=== PATIENT | female | born 1995 | race African-American/Black ===

== ENCOUNTER 2016-07-01 22:41 | Emergency (ER) | payer OTHER ==
[2016-07-01 23:06] LABS: BASOPHIL 0 % (0-2); EOSINOPHIL 0.2 % (0-5); HCT 35.8 % (37.0-47.0); LYMPHOCYTE 38.6 % (15-48); MCH 28.4 pg (25.0-31.0); MCHC 33.5 g/dL (32.0-36.0); MCV 84.8 fL (78.0-100.0); MPV 9.3 fL (6.0-9.5); NEUTROPHIL 54.2 % (41-80); PLT 275 K/uL (150-400); RBC 4.22 M/uL (4.20-5.40); RDW 13.2 % (11.5-14.0); WBC 6.1 K/uL (4.0-10.5)
[2016-07-01 23:25] LABS: ALBUMIN 4.1 g/dL (3.5-5.0); BILIRUBIN - TOTAL 0.4 mg/dL (0.1-1.0); CREATININE 0.9 mg/dL (0.5-1.0); POTASSIUM 3.9 mmol/L (3.5-5.1); TOTAL PROTEIN 7.1 g/dL (6.4-8.3)
[2016-07-01 23:39] LABS: BILIRUBIN NEGATIVE (NEGATIVE); BLOOD TRACE-INTACT Ery/uL (NEGATIVE); CLARITY CLEAR (CLEAR); COLOR YELLOW (YELLOW); GLUCOSE (U) NORMAL (NORMAL); KETONE (U) 2+ (MODERATE) mg/dL (NEGATIVE); LEUKOCYTES TRACE Leu/uL (NEGATIVE); NITRITE POSITIVE (NEGATIVE); PROTEIN TRACE (LOW) mg/dL (NEGATIVE); SPECIFIC GRAVITY >=1.030 (1.001-1.030)
[2016-07-01 23:45] LABS: BACTERIA 4+; CALCIUM OXALATE CRYSTALS MODERATE; MUCOUS MODERATE
== END 2016-07-02 01:15 | disposition home or self-care (01) ==
LOC: FER 22:41
PROVIDERS: Emergency Medicine Emergency Medical Services
DX: R07.9 Chest pain, unspecified (principal); N39.0 Urinary tract infection, site not specified; I49.9 Cardiac arrhythmia, unspecified; F17.210 Nicotine dependence, cigarettes, uncomplicated
CPT/HCPCS: 36415; 71020; 80053; 81001; 84484; 85025; 87076; 87088; 87186; 93005; J1885

== ENCOUNTER 2016-07-10 17:44 | Emergency (ER) | payer OTHER ==
[2016-07-10 18:16] LABS: BILIRUBIN NEGATIVE (NEGATIVE); BLOOD NEGATIVE Ery/uL (NEGATIVE); CLARITY CLEAR (CLEAR); COLOR YELLOW (YELLOW); GLUCOSE (U) NORMAL (NORMAL); KETONE (U) TRACE mg/dL (NEGATIVE); LEUKOCYTES 1+ Leu/uL (NEGATIVE); NITRITE NEGATIVE (NEGATIVE); PROTEIN NEGATIVE (NEGATIVE); SPECIFIC GRAVITY 1.025 (1.001-1.030); UROBILINOGEN 0.2 mg/dL (0.2-1.0)
[2016-07-10 18:26] LABS: BACTERIA 2+
[2016-07-10 18:27] LABS: SQUAMOUS EPITHELIAL CELLS 20-50; YEAST PRESENT
[2016-07-10 18:28] LABS: AMPHETAMINES POSITIVE (NEGATIVE); BARBITURATES POSITIVE (NEGATIVE); BENZODIAZEPINES NEGATIVE (NEGATIVE); COCAINE NEGATIVE (NEGATIVE); MARIJUANA (THC) NEGATIVE (NEGATIVE)
[2016-07-10 18:29] LABS: METHADONE NEGATIVE (NEGATIVE); TRICYCLIC ANTIDEPRESSANT NEGATIVE (NEGATIVE)
[2016-07-10 18:31] LABS: BASOPHIL 0.2 % (0-2); HCT 36.7 % (37.0-47.0); HGB 12.1 g/dl (12.5-16.0); LYMPHOCYTE 41.4 % (15-48); MCH 28.5 pg (25.0-31.0); MCV 86.6 fL (78.0-100.0); MONOCYTE 6.2 % (0-12); NEUTROPHIL 51.2 % (41-80); PLT 283 K/uL (150-400); RBC 4.24 M/uL (4.20-5.40); RDW 13.6 % (11.5-14.0); WBC 6.3 K/uL (4.0-10.5)
[2016-07-10 18:59] LABS: ALBUMIN 3.9 g/dL (3.5-5.0); BILIRUBIN - TOTAL 0.2 mg/dL (0.1-1.0); GLOBULIN (CALCULATION) 2.9 g/dL (2.2-4.2); POTASSIUM 4.6 mmol/L (3.5-5.1); TOTAL PROTEIN 6.8 g/dL (6.4-8.3)
[2016-07-10 19:00] LABS: ACETAMINOPHEN (TYLENOL) < 5.0 ug/mL (10.0-30.0); ALCOHOL (ETOH) MEDICAL NONE DETECTED; SALICYLATE < 6 ug/mL (0-300)
== END 2016-07-10 22:40 | disposition home or self-care (01) ==
LOC: FER 17:44
PROVIDERS: Nurse Practitioner
DX: T43.621A Poisoning by amphetamines, accidental (unintentional), initial encounter (principal); T42.3X1A Poisoning by barbiturates, accidental (unintentional), initial encounter; F32.9 Major depressive disorder, single episode, unspecified; F17.210 Nicotine dependence, cigarettes, uncomplicated
CPT/HCPCS: 36415; 80053; 80305; 81001; 85025; 93005; G0480